=== PATIENT | male | born 1975 | race Caucasian/White ===

== ENCOUNTER 2021-01-22 20:23 | Emergency (ER) | payer BC ==
[2021-01-22] MEDS ORDERED: ONDANSETRON 4 MG/2 ML VIAL ONE (21:13)
[2021-01-22] MEDS ORDERED: NA CHLORIDE 0.9% 1,000 ML ONE (21:14)
[2021-01-22 21:46] LABS: Absolute Lymphocytes (CBC) 0.8 K/uL (0.7-4.9); Basophils % 0.5 % (0-1.3); Hematocrit 47.4 % (39.6-49.0); Lymphocytes % 6.3 % (15.3-44.8); MPV 8.7 fL (7.6-11.3); RBC Red Blood Cell Count 5.35 M/uL (4.33-5.43)
[2021-01-22 21:58] LABS: ALT/SGPT 33 U/L (12-78); AST/SGOT 20 U/L (15-37); Alkaline Phosphatase 85 U/L (45-117); BUN Blood Urea Nitrogen 8 mg/dL (7-18); Bicarbonate 24 mmol/L (21-32); Bilirubin Direct 0.2 mg/dL (0-0.2); Bilirubin Total 0.8 mg/dL (0.2-1.0); Glucose Level 122 mg/dL (74-106); Lipase 103 U/L (73-393); Potassium 3.4 mmol/L (3.5-5.1); Protein, Total 7.9 g/dL (6.4-8.2); Sodium Level 142 mmol/L (136-145)
--- NOTE | 2021-01-22 23:24 | ER ---
Nurse's Notes [facility] Name: Raymundo Piedra Age: 45 yrs Sex: Male : 1975 Arrival Date: 01/22/2021 Time: 20:27 Bed 8 [facility] MD: Diagnosis: Vomiting;Diarrhea, unspecified Presentation: 01/22 20:37 Chief complaint: Patient states: N/V/D with abd pain for 1 day. No fever or dysuria. ll1 Coronavirus screen: Client denies travel out of the [place] in the last 14 days. At this time, the client does not indicate any symptoms associated with coronavirus-19. Ebola Screen: Patient denies travel to an Ebola-affected area in the 21 days before illness onset. Initial Sepsis Screen: Does the patient meet any 2 criteria? No. Patient's initial sepsis screen is negative. Does the patient have a suspected source of infection? Yes: Acute abdominal pain. Risk Assessment: Do you want to hurt yourself or someone else? Patient reports no desire to harm self or others. Onset of symptoms was January 22, 2021. 20:37 Method Of Arrival: Ambulatory ll1 20:37 Acuity: CARRILLO 3 ll1 Historical: - Allergies: 20:38 Sulfa (Sulfonamide Antibiotics); ll1 - PMHx: 20:38 Asthma; ll1 - PSHx: 20:38 Appendectomy; ll1 - Immunization history:: Flu vaccine is not up to date. - Social history:: Smoking status: Patient denies any tobacco usage or history of. Screenin:49 Abuse screen: Denies threats or abuse. Nutritional screening: No deficits noted. vg1 Tuberculosis screening: No symptoms or risk factors identified. Fall Risk No fall in past 12 months (0 pts). No secondary diagnosis (0 pts). IV access (20 points). Ambulatory Aid- None/Bed Rest/Nurse Assist (0 pts). Gait- Normal/Bed Rest/Wheelchair (0 pts) Mental Status- Oriented to own ability (0 pts). Total Hurt Fall Scale indicates No Risk (0-24 pts). Assessment: 20:47 General: Appears in no apparent distress. comfortable, Behavior is calm, cooperative. vg1 Pain: Complains of pain in abdomen and lower back Pain currently is 3 out of 10 on a pain scale. Pain began 1 day ago. Neuro: Level of Consciousness is awake, alert, obeys commands, Oriented to person, place, time, situation. Neuro: Reports lightheaded. Cardiovascular: Patient's skin is warm and dry. Respiratory: Airway is patent Respiratory effort is even, unlabored. GI: Abdomen is flat, Bowel sounds present X 4 quads. Abd is soft and non tender X 4 quads. GI: Reports bloating. : No signs and/or symptoms were reported regarding the genitourinary system. EENT: No signs and/or symptoms were reported regarding the EENT system. Derm: Skin is intact, is healthy with good turgor. Musculoskeletal: Circulation, motion, and sensation intact. 21:53 Reassessment: Patient appears in no apparent distress at this time. No changes from vg1 previously documented assessment. Patient and/or family updated on plan of care and expected duration. Pain level reassessed. Patient is alert, oriented x 3, equal unlabored respirations, skin warm/dry/pink. Patient denies pain at this time. 23:23 Reassessment: Patient stated after drinking water felt nauseous. Provider notified. vg1 Vital Signs: 20:37 BP 153 / 111; Pulse 88; Resp 17; Temp 98.2; Pulse Ox 98% ; Weight 95.25 kg; Height 5 ll1 ft. 11 in. (180.34 cm); Pain 3/10; 20:49 BP 153 / 105; Pulse 76; Resp 16; Pulse Ox 98% on R/A; vg1 21:30 BP 145 / 104; Pulse 80; Resp 16; Pulse Ox 100% on R/A; vg1 22:00 BP 135 / 99; Pulse 80; Resp 16; Pulse Ox 100% ; vg1 23:00 BP 136 / 96; Pulse 68; Resp 16; Pulse Ox 100% on R/A; vg1 20:37 Body Mass Index 29.29 (95.25 kg, 180.34 cm) ll1 ED Course: 20:27 Patient arrived in ED. cl3 20:31 Dae Stevens PA is PHCP. jmm 20:31 Kee Aguilar MD is Attending Physician. jmm 20:38 Triage completed. ll1 20:38 Arm band placed on Patient placed in an exam room, on a stretcher. ll1 20:40 Radha Zuleta, RN is Primary Nurse. vg1 20:49 Patient has correct armband on for positive identification. Bed in low position. Call vg1 light in reach. Side rails up X 1. 21:35 Missed attempt(s): 22 gauge in right antecubital area. vg1 21:55 Inserted saline lock: 20 gauge in right hand, using aseptic technique. ,using aseptic vg1 technique. completed by ADAM Rushing. 23:53 No provider procedures requiring assistance completed. IV discontinued, intact, vg1 bleeding controlled, No redness/swelling at site. Pressure dressing applied. Administered Medications: 21:51 Drug: NS 0.9% 1000 ml Route: IV; Rate: 1 bolus; Site: right hand; vg1 23:36 Follow up: IV Status: Completed infusion; IV Intake: 900ml vg1 21:51 Drug: Zofran (Ondansetron) 4 mg Route: IVP; Site: right hand; vg1 23:36 Follow up: Response: No adverse reaction vg1 23:35 Drug: Reglan 10 mg Route: IVP; Site: right hand; vg1 23:54 Follow up: Response: No adverse reaction vg1 Intake: 23:36 IV: 900ml; Total: 900ml. vg1 Outcome: 23:24 Discharge ordered by . nam 23:53 Discharged to home ambulatory. vg1 23:53 Condition: stable 23:53 Discharge instructions given to patient, Instructed on discharge instructions, follow up and referral plans. medication usage, Demonstrated understanding of instructions, follow-up care, medications, Prescriptions given X 2. 23:53 Patient left the ED. vg1 Signatures: Dae Stevens PA PA jmm Lewis, Charde cl3 Radha Zuleta, RN RN vg1 Genesis Chatman RN RN ll1
--- NOTE | 2021-01-22 23:24 | EDPHYS ---
Physician Documentation [facility] Name: Raymundo Piedra Age: 45 yrs Sex: Male : 1975 Arrival Date: 01/22/2021 Time: 20:27 Bed 8 Private MD: ED Physician Kee Aguilar HPI: 01/22 20:51 This 45 yrs old Male presents to ER via Ambulatory with complaints of jmm Nausea/Vomiting/Diarrhea. 20:51 The patient presents to the emergency department with nausea, vomiting, diarrhea. jmm Onset: The symptoms/episode began/occurred today. The symptoms are aggravated by nothing. The symptoms are alleviated by nothing. Associated signs and symptoms: Pertinent negatives: constipation, fever, GI bleeding, hematuria. The patient has not experienced similar symptoms in the past. Denies recent travel, denies recent abx use. Historical: - Allergies: 20:38 Sulfa (Sulfonamide Antibiotics); ll1 - PMHx: 20:38 Asthma; ll1 - PSHx: 20:38 Appendectomy; ll1 - Immunization history:: Flu vaccine is not up to date. - Social history:: Smoking status: Patient denies any tobacco usage or history of. ROS: 20:51 Constitutional: Negative for fever, chills, and weight loss, Cardiovascular: Negative jmm for chest pain, palpitations, and edema, Respiratory: Negative for shortness of breath, cough, wheezing, and pleuritic chest pain. 20:51 Abdomen/GI: Positive for abdominal pain, nausea and vomiting, diarrhea. 20:51 All other systems are negative. Exam: 20:51 Constitutional: This is a well developed, well nourished patient who is awake, alert, jmm and in no acute distress. Head/Face: atraumatic. Eyes: EOMI, no conjunctival erythema appreciated ENT: Moist Mucus Membranes Neck: Trachea midline, Supple Chest/axilla: Normal chest wall appearance and motion. Cardiovascular: Regular rate and rhythm. No edema appreciated Respiratory: Normal respirations, no respiratory distress appreciated 20:51 Back: Normal ROM Skin: General appearance color normal MS/ Extremity: Moves all extremities, no obvious deformities appreciated, no edema noted to the lower extremities Neuro: Awake and alert, normal gait Psych: Behavior is normal, Mood is normal, Patient is cooperative and pleasant 20:51 Abdomen/GI: Inspection: abdomen appears normal, Bowel sounds: normal, Palpation: abdomen is soft and non-tender, in all quadrants. Vital Signs: 20:37 BP 153 / 111; Pulse 88; Resp 17; Temp 98.2; Pulse Ox 98% ; Weight 95.25 kg; Height 5 ll1 ft. 11 in. (180.34 cm); Pain 3/10; 20:49 BP 153 / 105; Pulse 76; Resp 16; Pulse Ox 98% on R/A; vg1 21:30 BP 145 / 104; Pulse 80; Resp 16; Pulse Ox 100% on R/A; vg1 22:00 BP 135 / 99; Pulse 80; Resp 16; Pulse Ox 100% ; vg1 23:00 BP 136 / 96; Pulse 68; Resp 16; Pulse Ox 100% on R/A; vg1 20:37 Body Mass Index 29.29 (95.25 kg, 180.34 cm) ll1 MDM: 20:40 Patient medically screened. gauri 23:20 Data reviewed: vital signs, nurses notes. Counseling: I had a detailed discussion with nam the patient and/or guardian regarding: the historical points, exam findings, and any diagnostic results supporting the discharge/admit diagnosis, lab results, the need for outpatient follow up. ED course: No abdominal pain on reevaluation. Patient has had an appendectomy in the past. I do not suspect an acute intrabdominal process. patient was otherwise given strict return precautions. Patient understood and agrees with the plan of care. . 01/22 20:50 Order name: Basic Metabolic Panel [facility] 01/22 20:50 Order name: CBC with Diff [facility] 01/22 20:50 Order name: Hepatic Function [facility] 01/22 20:50 Order name: Lipase [facility] 01/22 21:47 Order name: CBC with Automated Diff; Complete Time: 21:53 [facility] 01/22 21:58 Order name: Basic Metabolic Panel; Complete Time: 21:58 [facility] 01/22 20:50 Order name: IV Saline Lock; Complete Time: 21:51 [facility] 01/22 20:50 Order name: Labs collected and sent; Complete Time: 21:51 [facility] 01/22 21:58 Order name: Liver (Hepatic) Function; Complete Time: 21:58 [facility] 01/22 21:58 Order name: Lipase; Complete Time: 21:58 [facility] 01/22 22:43 Order name: PO challenge; Complete Time: 23:23 [facility] Administered Medications: 21:51 Drug: NS 0.9% 1000 ml Route: IV; Rate: 1 bolus; Site: right hand; vg1 23:36 Follow up: IV Status: Completed infusion; IV Intake: 900ml vg1 21:51 Drug: Zofran (Ondansetron) 4 mg Route: IVP; Site: right hand; vg1 23:36 Follow up: Response: No adverse reaction vg1 23:35 Drug: Reglan 10 mg Route: IVP; Site: right hand; vg1 23:54 Follow up: Response: No adverse reaction vg1 Disposition: 01/23 22:19 Co-signature as Attending Physician, Kee Aguilar MD I agree with the assessment and [facility] plan of care. Disposition: 01/22/21 23:24 Discharged to Home. Impression: Vomiting, Diarrhea, unspecified. - Condition is Stable. - Discharge Instructions: Food Choices to Help Relieve Diarrhea, Adult, Clear Liquid Diet, Adult, Nausea and Vomiting, Adult. - Prescriptions for Zofran ODT 4 mg Oral tablet,disintegrating - place 1 tablet by TRANSLINGUAL route every 4-6 hours; 20 tablet. Bentyl 20 mg Oral Tablet - take 2 tablet by ORAL route every 6 hours As needed; 40 tablet. - Medication Reconciliation Form, Thank You Letter, Antibiotic Education, Prescription Opioid Use form. - Follow up: Private Physician; When: 2 - 3 days; Reason: Recheck today's complaints, Continuance of care, Re-evaluation by your physician. Signatures: Dispatcher [employer] Kee Duarte MD MD cha Mickail, Joel, PA PA jmm Garcia, Victoria, RN RN vg1 Genesis Chatman RN RN ll1 Corrections: (The following items were deleted from the chart) 01/22 23:53 23:24 01/22/2021 23:24 Discharged to Home. Impression: Vomiting; Diarrhea, unspecified. vg1 Condition is Stable. Forms are Medication Reconciliation Form, Thank You Letter, Antibiotic Education, Prescription Opioid Use. Follow up: Private Physician; When: 2 - 3 days; Reason: Recheck today's complaints, Continuance of care, Re-evaluation by your physician. nam
[2021-01-22] MEDS ORDERED: METOCLOPRAMIDE 10 MG/2mL INJ ONE (23:47)
[2021-01-23 10:31] VITALS: BP 136/96; TEMP 98.2; O2SAT 100
== END 2021-01-22 23:53 | disposition home or self-care (01) ==
LOC: ER 20:23
DX: R19.7 Diarrhea, unspecified (principal); Z88.2 Allergy status to sulfonamides
CPT/HCPCS: 96361; 85025; 80048; 36415; 80076; 83690; 96375; 96374; 99283; J2765; J7030; J2405